=== PATIENT | male | born 1980 | race Caucasian/White ===

== ENCOUNTER → 2022-02-19 | Day surgery (SDC) | payer BC ==
[~2022-02-19] MED LIST: ASPIRIN81 MG PO; CELEBREX200 MG PO; COLACE100 MG PO; DAILY VITAMIN1 EAC2 PO; NEURONTIN300 MG PO; OMEGA 3 1,0001 EACH PO; OXYCODONE HCL5 M1 PO; PEPCID20 MG PO; PREGNYL10000 UNIT SQ; SILDENAFIL20 MG PO; TYLENOL EXTRA500 MG PO; ZOFRAN 4 MG TAB4 MG PO
== END | disposition home or self-care (01) ==
LOC: OR 05:24
DX: M19.012 Primary osteoarthritis, left shoulder (principal); S43.432A Superior glenoid labrum lesion of left shoulder, initial encounter; M75.42 Impingement syndrome of left shoulder; M75.52 Bursitis of left shoulder; G89.18 Other acute postprocedural pain; J45.909 Unspecified asthma, uncomplicated; F41.9 Anxiety disorder, unspecified; X58.XXXA Exposure to other specified factors, initial encounter
CPT/HCPCS: C1713; J0171; J0592; J0690; J1100; J1885; J2250; J2405; J2704; J2710; J2795; J3010; J7120